=== PATIENT | female | born 1980 | race African-American/Black ===

== ENCOUNTER 2019-06-12 02:15 | Emergency (ER) | payer OTHER ==
[~2019-06-12] VITALS: Ht 170.2 cm; Wt 63.5 kg
[~2019-06-12 02:15] MED LIST: ACCUNEB SO1.25 MG/1 INH; IBUPROFEN 600600 M1 PO; NORCO 5-325 TA1 EACH PO
[2019-06-12 02:16] VITALS: BP 123/104
[2019-06-12 02:28] LABS: BE(vivo) -6.9 mmol/L (-2 to +3); HCO3 15.8 mmol/L (22.0-26.0); PCO2 VENOUS 25.5 mmHg (41.0-51.0); PO2 VENOUS 58.9 mmHg (35.0-45.0)
[2019-06-12 02:58] LABS: ABSOLUTE NEUTROPHILS 5.3 thou/uL (1.4-8.2); BASOPHILS 1.1 % (0.0-2.0); EOSINOPHILS 1.6 % (0.0-3.0); HEMATOCRIT 43.8 % (37.0-47.0); HEMOGLOBIN 14.8 gm/dL (12.0-15.0); LYMPHOCYTES 33.7 % (24.0-44.0); MCH 31.1 pg (26.0-34.0); MCHC 33.8 g/dL (28.0-37.0); MCV 92.2 fL (80.0-100.0); MONOCYTES 4.8 % (1.0-8.0); PLATELET COUNT 389 thou/uL (150-400); POLYS 58.8 % (36.0-66.0); RBC 4.75 mil/uL (4.20-5.00); RDW 17.6 % (10.5-14.5); WBC 9.1 thou/uL (4.0-11.0)
[2019-06-12 03:04] LABS: CALCIUM 9.3 mg/dL (8.5-10.1); CREATININE 0.9 mg/dL (0.6-1.0); POTASSIUM 4.3 mmol/L (3.5-5.1)
[2019-06-12 03:09] LABS: TOTAL BILIRUBIN 0.1 mg/dL (<0.1-1.0); TOTAL PROTEIN 7.9 g/dL (6.4-8.2)
== END 2019-06-12 06:54 | disposition home or self-care (01) ==
LOC: ER 02:15
PROVIDERS: Emergency Medicine
DX: F41.0 Panic disorder [episodic paroxysmal anxiety] (principal); F43.0 Acute stress reaction; J45.909 Unspecified asthma, uncomplicated; F12.90 Cannabis use, unspecified, uncomplicated; Z90.49 Acquired absence of other specified parts of digestive tract; Z79.899 Other long term (current) drug therapy